=== PATIENT | male | born 1995 | race Caucasian/White ===

== ENCOUNTER 2020-09-11 10:55 | Emergency (ER) | payer OTHER, SELFPAY ==
--- NOTE | 2020-09-11 11:04 | ED.GENADULT ---
HPI - General Adult General Chief complaint: Back Pain/Injury Stated complaint: Back Injury Time Seen by Provider: 09/11/20 11:03 Source: patient Mode of arrival: ambulatory Limitations: no limitations History of Present Illness HPI narrative: 24-year-old male patient presents to the [facility] with complaints of lower back pain. Patient states he was at the gym yesterday and was doing lifts . Patient states he kind of lost his balance and twisted his lower back and thinks he might of strained his back at that time. Patient states he did not have much pain yesterday but when he woke up this morning was having some pain to the left lower lumbar area. Patient denies any numbness or tingling down the legs. Denies any loss of bowel or bladder control. Denies any midline spinal pain. Patient denies taking anything for his pain. Patient denies using any type of heat or ice. Related Data Home Medications Medication Instructions Recorded Confirmed No Home Medications 09/11/20 09/11/20 Allergies Allergy/AdvReac Type Severity Reaction Status Date / Time No Known Allergies Allergy Verified 09/11/20 11:13 Review of Systems Review of Systems: Narrative: CONSTITUTIONAL: Denies fever, chills, or sweats. EYES: Denies visual changes, redness, or discharge. ENT: Denies rhinorrhea, congestion, sore throat, or otalgia. CARDIOVASCULAR: Denies chest pain, palpitations, or edema. RESPIRATORY: Denies cough or dyspnea. GASTROINTESTINAL: Denies abdominal pain, nausea, vomiting, or diarrhea. GENITOURINARY: Denies dysuria or hematuria. SKIN: Denies rash or itching. MUSCULOSKELETAL: Positive left low back pain, denies joint pain, or myalgia. NEUROLOGIC: Denies headache, numbness, or weakness. PSYCHIATRIC: Denies anxiety or depression. PMFSH Comments At the time of my signature I agree with nursing past medical history, surgical, social, and family history. There is no relevant family history pertinent to the presenting complaint. Exam Narrative: Exam Narrative: GENERAL: Well-appearing, well-nourished, and in no acute distress. HEAD: Normocephalic, atraumatic. EYES: PERRLA and EOMI. ENT: Nares clear, no rhinorrhea or epistaxis. Mucous membranes moist. NECK: Supple. No lymphadenopathy CHEST: Clear to auscultation. No respiratory distress. HEART: Regular rate and rhythm. No murmur heard. Normal peripheral pulses. ABDOMEN: Soft, nontender, nondistended, normal active bowel sounds. No CVA tenderness on percussion BACK: Patient is able to ambulated without assistance. Pt is seated/lying on the stretcher in no obvouis distress. No surface trauma noted. No muscle tenderness to Palpation. No spasm or mass. No step-offs or deformity noted to the cervical, thoracic or lumbar spine to firm Palpation at the midline. No CVA tenderness to percussion. No saddle anesthesia. ROM: able to stand erect. Normal flexion, extension, Lateral bending and rotation without limitation or complaint of pain. EXTREMITIES: Normal range of motion. No edema. SKIN: Warm, dry, no rash. NEURO: No focal deficits. Alert and oriented x3. Course Vital Signs Vital signs: Vital Signs Temperature 36.6 C 09/11/20 11:18 Pulse Rate 69 09/11/20 11:18 Respiratory Rate 14 09/11/20 11:18 Blood Pressure 129/63 09/11/20 11:18 Pulse Oximetry 99 09/11/20 11:18 Temperature 36.6 C 09/11/20 11:18 Pulse Rate 69 09/11/20 11:18 Respiratory Rate 14 09/11/20 11:18 Blood Pressure 129/63 09/11/20 11:18 Pulse Oximetry 99 09/11/20 11:18 Vital signs reviewed Medical Decision Making Differential Diagnosis Differential Diagnosis: Differential diagnosis: Acute musculoskeletal injury or exacerbation, neurological emergency, acute coronary syndrome, kidney stones, epidural abscess or hematoma,Cauda Equina Syndrome, herniation. Discussed with patient the fact that he is not having any CVA tenderness and he has no spinal tenderness is reassuring. Discussed with maryana
[2020-09-11 11:18] VITALS: BP 129/63; PULSE 69; RESP 14; TEMP 36.6; O2SAT 99
== END 2020-09-11 11:30 | disposition home or self-care (01) ==
PROVIDERS: Emergency Provider Nurse Practitioner Family
DX: S39.012A Strain of muscle, fascia and tendon of lower back, initial encounter (principal); X50.9XXA Other and unspecified overexertion or strenuous movements or postures, initial encounter; Y93.B9 Activity, other involving muscle strengthening exercises
CPT/HCPCS: 99212; G0463